=== PATIENT | female | born 1980 | race Hispanic/Latino ===

== ENCOUNTER → 2017-12-02 14:48 | Outpatient (CLI) | payer BC, SELFPAY ==
[2017-12-04 16:26] LABS: HPV Reflexed? NOT INDICATED
== END ==
PROVIDERS: Family Provider Family Medicine; PCP Family Medicine; Visit Provider Obstetrics & Gynecology
DX: Z12.4 Encounter for screening for malignant neoplasm of cervix (principal)
CPT/HCPCS: 88175; G0145

== ENCOUNTER → 2017-12-04 07:41 | Outpatient (CLI) | payer BC, SELFPAY ==
[2017-12-04 09:30] LABS: Hematocrit 40.2 % (37-47); Hemoglobin 13.3 g/dl (12.0-15.0); Mean Corp Hgb Conc 33.1 g/gl (32-36); Mean Corpuscular Hgb 29.6 pg (27.0-32.0); Mean Corpuscular Volume 89.5 fL (81-99); Platelet Count 156 K/mm3 (150-450); RBC Distribution Width CV 12.7 % (11.6-14.6); RBC Distribution Width SD 41.1 fl (35.1-43.9); Red Blood Count 4.49 M/mm3 (4.2-5.4); White Blood Count 3.9 K/mm3 (4.4-11.0)
[2017-12-04 09:37] LABS: Scan Indicated on CBC? Y/N NO
[2017-12-04 10:05] LABS: ALB/GLOB Ratio 1.1 RATIO (0.9-2.4); AST(SGOT) 16 U/L (15-37); Alanine Aminotransfer ALT/SGPT 26 U/L (13-56); Albumin, Serum 3.9 g/dL (3.2-5.0); Alkaline Phosphatase 38 U/L (45-117); Anion Gap 6 (5-15); BUN 12 mg/dL (7-18); BUN/Creat Ratio 18.3 RATIO (10-20); Calcium,Total 8.3 mg/dL (8.5-10.1); Chloride 108 mmol/L (98-107); Cholesterol 160 mg/dL (200); Creatinine, Serum 0.66 mg/dL (0.55-1.02); EST Glomerular Filtration Rate 108 mL/min (>60); Est Glom Filt Rate - Afr Amer 131 mL/min (>60); Globulin 3.4 g/dL (2.2-4.2); Glucose 85 mg/dL (74-106); High Density Lipoprotein 60 mg/dL; Potassium 3.7 mmol/L (3.5-5.1); Protein, Total 7.3 g/dL (6.4-8.2); Sodium Level 141 mmol/L (136-145); Thyroid Stim Hormone (TSH) 2.31 uIU/mL (0.358-3.74); Triglycerides 87 mg/dL; Very Low Density Lipoprotein 17 mg/dL (5-40)
== END ==
PROVIDERS: Visit Provider Obstetrics & Gynecology
DX: Z00.00 Encounter for general adult medical examination without abnormal findings (principal)
CPT/HCPCS: 36415; 80053; 80061; 84443; 85027

== ENCOUNTER → 2018-05-08 08:01 | Outpatient (CLI) | payer BC, SELFPAY ==
[2018-05-08 08:58] LABS: Absolute Lymphocyte Count 1.56 X10^3/ul (0.83-4.51); Absolute Neutrophil Count 3.1 X10^3/uL (2.0-7.7); Basophil# 0.01 X10^3/uL; Basophil% 0.2 % (0-1); Eosinophil# 0.04 X10^3/uL; Eosinophils% 0.8 % (0-5); Hemoglobin 13.2 g/dl (12.0-15.0); Lymphocyte # 1.56 X10^3/ul (4.0); Lymphocyte % 30.4 % (19-41); Mean Corpuscular Hgb 29.7 pg (27.0-32.0); Mean Corpuscular Volume 89.9 fL (81-99); Mean Platelet Vol. 9.8 fl (6.2-12.0); Monocyte# 0.42 X10^3/uL; Monocyte% 8.2 % (0-10); Neutrophil # 3.11 X10^3/uL (2.7-7.7); Neutrophil % 60.4 % (47-70); Platelet Count 183 K/mm3 (150-450); RBC Distribution Width CV 12.6 % (11.6-14.6); RBC Distribution Width SD 41.3 fl (35.1-43.9); Red Blood Count 4.45 M/mm3 (4.2-5.4); White Blood Count 5.1 K/mm3 (4.4-11.0)
[2018-05-08 08:59] LABS: POSITIVE COUNT NO; POSITIVE DIFFERENTIAL NO; POSITIVE MORPHOLOGY NO
[2018-05-08 09:11] LABS: ALB/GLOB Ratio 1.1 RATIO (0.9-2.4); AST(SGOT) 19 U/L (15-37); Alanine Aminotransfer ALT/SGPT 25 U/L (13-56); Albumin, Serum 3.9 g/dL (3.2-5.0); Alkaline Phosphatase 38 U/L (45-117); Anion Gap 8 (5-15); BUN 15 mg/dL (7-18); BUN/Creat Ratio 22.4 RATIO (10-20); Calcium,Total 8.2 mg/dL (8.5-10.1); Chloride 108 mmol/L (98-107); Cholesterol 178 mg/dL (200); Creatinine, Serum 0.67 mg/dL (0.55-1.02); EST Glomerular Filtration Rate 106 mL/min (>60); Est Glom Filt Rate - Afr Amer 128 mL/min (>60); Globulin 3.7 g/dL (2.2-4.2); Glucose 93 mg/dL (74-106); High Density Lipoprotein 76 mg/dL; Potassium 4.1 mmol/L (3.5-5.1); Protein, Total 7.6 g/dL (6.4-8.2); Sodium Level 141 mmol/L (136-145); Triglycerides 51 mg/dL; Very Low Density Lipoprotein 10 mg/dL (5-40)
--- OUTSIDE RECORDS SUMMARY | 2018-07-03 01:44 | XMS RPT_ITS ---
:1980 Author Organization OHIP Care Team Providers Name Role Phone Shelby Simmons Attending Unavailable Shelby Simmons Referring Unavailable Primay Care Physicia, No Primary Care Unavailable Shelby Simmons Attending Unavailable Angel Casanova Primary Care Unavailable Oleghe, Efewongbe Attending Unavailable Oleghe, Efewongbe Referring Unavailable Oleghe, Efewongbe Attending Unavailable Oleghe, Efewongbe Referring Unavailable Oleghe, Efewongbe Primary Care Unavailable PROBLEMS PROBLEMS DATE TYPE CONDITION / CODE ATTENDING STATUS SOURCE 12/02/2017 Unknown Z12.4 - Shelby Simmons Active [place] Encounter for Community screening for Hospital malignant Repository neoplasm of cervix / Z12.4(ICD-10) PROCEDURES PROCEDURES No Procedure Records FoundRESULTS RESULTS CBC W/DIFF, AUTOMATED Collected: 05/08/2018 Status: F Source: [place] [facility] TYPE CODE TESTS RESULT OUT OF RANGE REFERENCE UNITS LAB L100.1000 4.4-11.0 K/mm3 Normal WBC 5.1 LAB L100.1200 4.2-5.4 M/mm3 Normal RBC 4.45 LAB L100.1300 12.0-15.0 g/dl Normal HGB 13.2 LAB L100.1400 37-47 % Normal HCT 40.0 LAB L100.1500 81-99 fL Normal MCV 89.9 LAB L100.1600 27.0-32.0 pg Normal MCH 29.7 LAB L100.1700 32-36 g/gl Normal MCHC 33.0 LAB L100.1810 11.6-14.6 % Normal RDW CV 12.6 LAB L100.1820 35.1-43.9 fl Normal RDW SD 41.3 LAB L100.1900 150-450 K/mm3 Normal PLT 183 LAB L100.2000 6.2-12.0 fl Normal MPV 9.8 LAB L100.2100 47-70 % Normal NEUT% 60.4 LAB L100.2200 19-41 % Normal LY% 30.4 LAB L100.2300 0-10 % Normal MONO% 8.2 LAB L100.2400 0-5 % Normal EO% 0.8 LAB L100.2500 0-1 % Normal BASO% 0.2 LAB L100.2550 0.0-0.9 % Normal IM GRAN % 0.000 Result Comment: IG% - Immature Granulocytes (promyelocytes, myelocytes and metamyelocytes) > 1% indicates that a LEFT SHIFT is Present. LAB L100.2620 2.0-7.7 X10 3/uL Normal Absolute Neut 3.1 LAB L100.2720 0.83-4.51 X10 3/ul Normal Absolute Lymph 1.56 Performed By: #### L100.0100 #### [facility] [address] [place] [address]. [place], [place], [address] COMPREHENSIVE METABOLIC Collected: 05/08/2018 Status: F Source: [facility] 8:27 AM [facility] REPOSITORY TYPE CODE TESTS RESULT OUT OF RANGE REFERENCE UNITS LAB L501.0100 74-106 mg/dL Normal GLU 93 Result Comment: Please note revised GLUCOSE reference range effective 2017. LAB L501.1000 7-18 mg/dL Normal BUN 15 LAB L501.1100 0.55-1.02 mg/dL Normal CREAT,SERUM 0.67 Result Comment: The validity of the calculated GFR AND GFRAA in patients over 70 years has not been determined. Clinical correlation is essential. LAB L501.1110 >60 mL/min Normal EST GFR 106 Result Comment: Non- GFR Calc LAB L501.1115 >60 mL/min Normal EST GFR - AA 128 Result Comment: GFR Calc LAB L501.1300 10-20 RATIO High BUN/CRE 22.4 LAB L501.1500 6.4-8.2 g/dL T Normal PROT 7.6 LAB L501.1800 3.2-5.0 g/dL Normal ALB 3.9 LAB L501.1950 2.2-4.2 g/dL Normal GLOB 3.7 LAB L501.2000 0.9-2.4 RATIO Normal A/G 1.1 LAB L501.2200 8.5-10.1 mg/dL Low CA 8.2 LAB L501.4100 15-37 U/L Normal AST 19 LAB L501.4305 45-117 U/L Low ALK P 38 LAB L501.4405 13-56 U/L Normal ALT 25 LAB L501.4600 0.20-1.00 mg/dL T Normal BILI 0.80 LAB L501.5300 136-145 mmol/L NA Normal 141 LAB L501.5600 3.5-5.1 mmol/L K Normal 4.1 LAB L501.5900 98-107 mmol/L High CL 108 LAB L501.6100 21.0-32.0 mmol/L Normal CO2 25.0 LAB L501.6200 5-15 Normal GAP 8 Performed By: #### L500.4050, L500.4100 #### [facility] [place], [address] LIPID PROFILE Collected: 05/08/2018 Status: F Source: [place] 8:27 AM [facility] REPOSITORY TYPE CODE TESTS RESULT OUT OF RANGE REFERENCE UNITS LAB L501.4900 200 mg/dL Normal CHOL 178 Result Comment: <200 mg/dL Desirable 200-240 mg/dL Borderline >240 mg/dL High Risk LAB L501.5000 mg/dL Normal TRIG 51 Result Comment: The drugs N-Acetylcysteine and Metamizole may falsely depress this assay. Serum Triglycerides Reference Interval Normal <150 mg/dL Borderline high 150 - 199 mg/dL High 200 - 499 mg/dL Very High > or = 500 mg/dL LAB L501.6400 mg/dL Normal HDL 76 Result Comment: The drugs N-Acetylcysteine and Metamizole may falsely depress this assay. Reference Range HDL <40 mg/dL Low HDL Cholesterol HDL >or= 60 mg/dL High HDL Cholesterol LAB L501.6500 0-130 mg/dL Normal LDL 92 LAB L501.6600 5-40 mg/dL Normal VLDL 10 Performed By: #### L500.4050, L500.4100 #### [facility] [address] [place], [address] PROGRESS Observed: 02/03/2018 Status: COMPLETED Source: [place] 2:50 PM [facility] REPOSITORY HNO ID: [id number] Author: Austin Gupta) Chong Service: (none) Author Type: Physician Abrasive Grader Type: Progress Notes Filed: 02/03/2018 2:53 PM Note Text: Subjective HPI Pt presents with left sinus congestion and facial pain for a week. She feels it is worsening. She has tried tylenol otc which did not help. She is prone to sinus infections. partially translates as patient Divehi is broken and she primarily speaks Burmese. No fever or chills. No nv. No cough. Review of Systems Constitutional: Negative for fever. HENT: Positive for congestion, sinus pain and sore throat. Eyes: Negative. Respiratory: Negative. Negative for cough. Cardiovascular: Negative. Gastrointestinal: Negative. Genitourinary: Negative. Musculoskeletal: Negative. Skin: Negative. Negative for rash. All other systems reviewed and are negative. PAST MEDICAL HISTORY Diagnosis Date - NEGATIVE MEDICAL HISTORY Current Outpatient Prescriptions: Multivitamin capsule Take 1 capsule by mouth once daily. Disp: Rfl: acetaminophen (TYLENOL) 325 mg tablet Take 650 mg by mouth every 6 hours as needed. Disp: Rfl: doxycycline (VIBRA-TABS) 100 mg tablet Take 1 tablet by mouth twice daily for 10 days. Disp: 20 tablet Rfl: 0 fluticasone (FLONASE ALLERGY RELIEF) 50 mcg/actuation nasal spray Use 1 [place] in each nostril once daily for 7 days. Disp: 1 Bottle Rfl: 0 cetirizine (ZYRTEC) 10 mg tablet Take 1 tablet by mouth once daily for 14 days. Disp: 14 tablet Rfl: 0 Norethindrone, Contraceptive, 0.35 mg tablet Disp: Rfl: No current facility-administered medications for this visit. PAST SURGICAL HISTORY Procedure Laterality Date - SNGL - PAST SURGICAL HISTORY OF Knee surgery No family history on file. Social History Substance Use Topics - Smoking status: Never Smoker - Smokeless tobacco: Never Used - Alcohol use No BP 102/60 Pulse 70 Temp 36.3 ?C (97.3 ?F) (Tympanic) Resp 16 Wt 46.3 kg (102 lb) LMP 02/02/2018 BMI 18.36 kg/m? Objective Physical Exam Constitutional: She is oriented to person, place, and time and well-developed, well-nourished, and in no distress. HENT: Head: Normocephalic and atraumatic. Right Ear: Tympanic membrane, external ear and ear canal normal. Left Ear: Tympanic membrane, external ear and ear canal normal. Nose: Mucosal edema and rhinorrhea present. Left sinus exhibits maxillary sinus tenderness. Mouth/Throat: Uvula is midline, oropharynx is clear and moist and mucous membranes are normal. Cardiovascular: Normal rate, regular rhythm and normal heart sounds. Pulmonary/Chest: Effort normal and breath sounds normal. Neurological: She is alert and oriented to person, place, and time. Skin: Skin is warm and dry. No rash noted. Psychiatric: Affect and judgment normal. Nursing note and vitals reviewed. ASSESSMENT/PLAN: 1. Acute non-recurrent maxillary sinusitis - ICD9: 461.0, ICD10: J01.00 - Will begin treatment with Doxycline - The patient should also be given Flonase and zyrtec for the first 5-7 days of treatment. - Supportive care with plenty of fluids, rest, and analgesia prn. - Follow up in one week if symptoms persist or worsen. - DOXYCYCLINE HYCLATE 100 MG TABLET - FLUTICASONE 50 MCG/ACTUATION NASAL SPRAY,SUSPENSION - CETIRIZINE 10 MG TABLET SAM Bailey Observed: 02/03/2018 Status: COMPLETED Source: [place] 12:15 PM [facility] REPOSITORY Office Visit ([facility]STR) JONESMÓNICA MONROY ([id number]) 1980 F Date Time Provider Department 02/03/18 12:15 PM AUSTIN GARZA) [facility] During your visit today, we recorded the following information about you: Temperature Pulse Respiration Blood pressure 97.3 degrees 70/minute 16/minute 102/60 Weight Last Period 46.3 kg 02/02/18 Austin Garza PA-C 02/03/2018 2:53 PM Signed Subjective HPI Pt presents with left sinus congestion and facial pain for a week. She feels it is worsening. She has tried tylenol otc which did not help. She is prone to sinus infections. partially translates as patient Divehi is broken and she primarily speaks Burmese. No fever or chills. No nv. No cough. Review of Systems Constitutional: Negative for fever. HENT: Positive for congestion, sinus pain and sore throat. Eyes: Negative. Respiratory: Negative. Negative for cough. Cardiovascular: Negative. Gastrointestinal: Negative. Genitourinary: Negative. Musculoskeletal: Negative. Skin: Negative. Negative for rash. All other systems reviewed and are negative. PAST MEDICAL HISTORY Diagnosis Date - NEGATIVE MEDICAL HISTORY Current Outpatient Prescriptions: Multivitamin capsule Take 1 capsule by mouth once daily. Disp: Rfl: acetaminophen (TYLENOL) 325 mg tablet Take 650 mg by mouth every 6 hours as needed. Disp: Rfl: doxycycline (VIBRA-TABS) 100 mg tablet Take 1 tablet by mouth twice daily for 10 days. Disp: 20 tablet Rfl: 0 fluticasone (FLONASE ALLERGY RELIEF) 50 mcg/actuation nasal spray Use 1 [place] in each nostril once daily for 7 days. Disp: 1 Bottle Rfl: 0 cetirizine (ZYRTEC) 10 mg tablet Take 1 tablet by mouth once daily for 14 days. Disp: 14 tablet Rfl: 0 Norethindrone, Contraceptive, 0.35 mg tablet Disp: Rfl: No current facility-administered medications for this visit. PAST SURGICAL HISTORY Procedure Laterality Date - SNGL - PAST SURGICAL HISTORY OF Knee surgery No family history on file. Social History Substance Use Topics - Smoking status: Never Smoker - Smokeless tobacco: Never Used - Alcohol use No BP 102/60 Pulse 70 Temp 36.3 ?C (97.3 ?F) (Tympanic) Resp 16 Wt 46.3 kg (102 lb) LMP 02/02/2018 BMI 18.36 kg/m? Objective Physical Exam Constitutional: She is oriented to person, place, and time and well-developed, well-nourished, and in no distress. HENT: Head: Normocephalic and atraumatic. Right Ear: Tympanic membrane, external ear and ear canal normal. Left Ear: Tympanic membrane, external ear and ear canal normal. Nose: Mucosal edema and rhinorrhea present. Left sinus exhibits maxillary sinus tenderness. Mouth/Throat: Uvula is midline, oropharynx is clear and moist and mucous membranes are normal. Cardiovascular: Normal rate, regular rhythm and normal heart sounds. Pulmonary/Chest: Effort normal and breath sounds normal. Neurological: She is alert and oriented to person, place, and time. Skin: Skin is warm and dry. No rash noted. Psychiatric: Affect and judgment normal. Nursing note and vitals reviewed. ASSESSMENT/PLAN: 1. Acute non-recurrent maxillary sinusitis - ICD9: 461.0, ICD10: J01.00 - Will begin treatment with Doxycline - The patient should also be given Flonase and zyrtec for the first 5-7 days of treatment. - Supportive care with plenty of fluids, rest, and analgesia prn. - Follow up in one week if symptoms persist or worsen. - DOXYCYCLINE HYCLATE 100 MG TABLET - FLUTICASONE 50 MCG/ACTUATION NASAL SPRAY,SUSPENSION - CETIRIZINE 10 MG TABLET Austin Garza PA-C Referring Provider: SELF [200] Allergies As of Date: 02/03/2018 Noted Allergy Reaction AUGMENTIN (AMOXICILLIN-POT CLAVUL*01/25/2015 16 - Unknown Date Reviewed: 02/03/2018 Reviewed by: Noelle Ribera Ma - Fully Assessed Reason for Visit: Sinus Problem [99] Cmt: sinus pressure and drainage x 1 week Primary Visit Diagnosis:Acute non-recurrent maxillary sinusitis [J01.00] Order(s):doxycycline (VIBRA-TABS) 100 mg tabletTake 1 tablet by mouth twice daily for 10 days.Disp: 20 tabletRfl: 0 fluticasone (FLONASE ALLERGY RELIEF) 50 mcg/actuation nasal sprayUse 1 [place] in each nostril once daily for 7 days.Disp: 1 BottleRfl: 0 cetirizine (ZYRTEC) 10 mg tabletTake 1 tablet by mouth once daily for 14 days.Disp: 14 tabletRfl: 0 Prescriptions as of 02/03/2018 Sig: MULTIVITAMIN CAPSULE Take 1 capsule by mouth once * ACETAMINOPHEN 325 MG TABLET Take 650 mg by mouth every 6 * DOXYCYCLINE HYCLATE 100 MG TA* Take 1 tablet by mouth twice * FLUTICASONE 50 MCG/ACTUATION * Use 1 [place] in each nostril o* CETIRIZINE 10 MG TABLET Take 1 tablet by mouth once d* NORETHINDRONE (CONTRACEPTIVE)* Problem List As Of Date: 02/03/2018 (None) Prescriptions ordered this encounter Disp Refills Start End DOXYCYCLINE HYCLATE 100 MG TABLET 20 t* 0 02/03/2018 02/13/2018 Route: ORAL Sig: Take 1 tablet by mouth twice daily for 10 days. FLUTICASONE 50 MCG/ACTUATION NASAL S* 1 Al* 0 02/03/2018 02/10/2018 Route: EACH NOSTRIL Sig: Use 1 [place] in each nostril once daily for 7 days. CETIRIZINE 10 MG TABLET 14 t* 0 02/03/2018 02/17/2018 Route: ORAL Sig: Take 1 tablet by mouth once daily for 14 days. Encounter Status:Closed by AUSTIN GARZA PA-C on 02/03/18 CBC-COMPLETE BLOOD CNT Collected: 12/04/2017 Status: F Source: [place] NO DIFF 7:46 AM [facility] REPOSITORY TYPE CODE TESTS RESULT OUT OF RANGE REFERENCE UNITS LAB L100.1000 4.4-11.0 K/mm3 Low WBC 3.9 LAB L100.1200 4.2-5.4 M/mm3 Normal RBC 4.49 LAB L100.1300 12.0-15.0 g/dl Normal HGB 13.3 LAB L100.1400 37-47 % Normal HCT 40.2 LAB L100.1500 81-99 fL Normal MCV 89.5 LAB L100.1600 27.0-32.0 pg Normal MCH 29.6 LAB L100.1700 32-36 g/gl Normal MCHC 33.1 LAB L100.1810 11.6-14.6 % Normal RDW CV 12.7 LAB L100.1820 35.1-43.9 fl Normal RDW SD 41.1 LAB L100.1900 150-450 K/mm3 Normal PLT 156 LAB L100.2000 6.2-12.0 fl Normal MPV 10.0 Performed By: #### L100.0500 #### [facility] [address] [place], [address] COMPREHENSIVE METABOLIC Collected: 12/04/2017 Status: F Source: [place] LAMB 7:46 AM [facility] REPOSITORY TYPE CODE TESTS RESULT OUT OF RANGE REFERENCE UNITS LAB L501.0100 74-106 mg/dL Normal GLU 85 Result Comment: Please note revised GLUCOSE reference range effective 2017. LAB L501.1000 7-18 mg/dL Normal BUN 12 LAB L501.1100 0.55-1.02 mg/dL Normal CREAT,SERUM 0.66 Result Comment: The validity of the calculated GFR AND GFRAA in patients over 70 years has not been determined. Clinical correlation is essential. LAB L501.1110 >60 mL/min Normal EST GFR 108 Result Comment: Non- GFR Calc LAB L501.1115 >60 mL/min Normal EST GFR - AA 131 Result Comment: GFR Calc LAB L501.1300 10-20 RATIO Normal BUN/CRE 18.3 LAB L501.1500 6.4-8.2 g/dL T Normal PROT 7.3 LAB L501.1800 3.2-5.0 g/dL Normal ALB 3.9 LAB L501.1950 2.2-4.2 g/dL Normal GLOB 3.4 LAB L501.2000 0.9-2.4 RATIO Normal A/G 1.1 LAB L501.2200 8.5-10.1 mg/dL Low CA 8.3 LAB L501.4100 15-37 U/L Normal AST 16 LAB L501.4305 45-117 U/L Low ALK P 38 LAB L501.4405 13-56 U/L Normal ALT 26 LAB L501.4600 0.20-1.00 mg/dL High T BILI 1.30 LAB L501.5300 136-145 mmol/L NA Normal 141 LAB L501.5600 3.5-5.1 mmol/L K Normal 3.7 LAB L501.5900 98-107 mmol/L High CL 108 LAB L501.6100 21.0-32.0 mmol/L Normal CO2 27.0 LAB L501.6200 5-15 Normal GAP 6 Performed By: #### L500.4050, L500.4100, L501.9520 #### [facility] [address] [place], [address] LIPID PROFILE Collected: 12/04/2017 Status: F Source: [place] 7:46 AM [facility] REPOSITORY TYPE CODE TESTS RESULT OUT OF RANGE REFERENCE UNITS LAB L501.4900 200 mg/dL Normal CHOL 160 Result Comment: <200 mg/dL Desirable 200-240 mg/dL Borderline >240 mg/dL High Risk LAB L501.5000 mg/dL Normal TRIG 87 Result Comment: The drugs N-Acetylcysteine and Metamizole may falsely depress this assay. Serum Triglycerides Reference Interval Normal <150 mg/dL Borderline high 150 - 199 mg/dL High 200 - 499 mg/dL Very High > or = 500 mg/dL LAB L501.6400 mg/dL Normal HDL 60 Result Comment: The drugs N-Acetylcysteine and Metamizole may falsely depress this assay. Reference Range HDL <40 mg/dL Low HDL Cholesterol HDL >or= 60 mg/dL High HDL Cholesterol LAB L501.6500 0-130 mg/dL Normal LDL 83 LAB L501.6600 5-40 mg/dL Normal VLDL 17 Performed By: #### L500.4050, L500.4100, L501.9520 #### [facility] [address] [place], [address] THYROID STIM HORMONE Collected: 12/04/2017 Status: F Source: [place] (TSH) 7:46 AM [facility] REPOSITORY TYPE CODE TESTS RESULT OUT OF RANGE REFERENCE UNITS LAB L501.9520 0.358-3.74 uIU/mL Normal TSH 2.31 Performed By: #### L500.4050, L500.4100, L501.9520 #### [facility] [address] [place], [address] PAP I-G W/RFX HRHPV Collected: 12/02/2017 Status: F Source: [place] 11:15 AM [facility] REPOSITORY Order Comment: CYTOLOGY INFORMATION: - CLINICAL INFORMATION: LACTATING - DATE LMP/MENOPAUSE: LMP NOT GIVEN - COLLECTION VIAL: Thin Prep Vial - LAST TURNER SOURCE: CERVICAL/ENDOCERVICAL - COLLECTION TECHNIQUE: BRUSH/SPATULA Specimen Comment: [id number] Specimen Comment: No. of containers..01 ThinPrep Vial TYPE CODE TESTS RESULT OUT OF RANGE REFERENCE UNITS LAB L7400.0800 . Normal DIAGN Comment Result Comment: NEGATIVE FOR INTRAEPITHELIAL LESION AND MALIGNANCY. LAB L7400.0900 . Normal ADEQ Comment Result Comment: Satisfactory for evaluation. Endocervical and/or squamous metaplastic cells (endocervical component) are present. LAB L7400.1400 . Normal PERFORM Comment Result Comment: Tania Buitrago, Gas Analyst (ASCP) LAB L7400.2575 . Normal TEST METHOD Comment Result Comment: This liquid based ThinPrep(R) pap test was screened with the use of an image guided system. LAB L7400.2600 . Normal . COMM LAB L7400.2700 . Normal PAPSMR Comment Result Comment: The Pap smear is a screening test designed to aid in the detection of premalignant and malignant conditions of the uterine cervix. It is not a diagnostic procedure and should not be used as the sole means of detecting cervical cancer. Both false-positive and false-negative reports do occur. LAB L7400.2800 . Normal HPV RFLX Comment Result Comment: The HPV DNA reflex criteria were not met with this specimen result therefore, no HPV testing was performed. Performed at: [facility] [address] [id number] Inspection Clerk: Leticia Smith MD, Phone: [phone] Performed By: #### L7400.0350 #### [facility] (refer to report for specific site) refer to report for address and phone number ALLERGIES ALLERGIES DATE TYPE / CODE NAME / CODE REACTION SEVERITY SOURCE 10/31/2016 Drug amoxicillin/M27746 Nausea Unknown [place] Allergy/416 3675(RXNORM) [facility] 459632([facility] [place]) Repository 01/25/2015 DRUG/087384 AMOXICILLIN-POT UNKNOWN [facility] 003(SNOMED CLAVULANATE [facility] CT) Repository ENCOUNTERS ENCOUNTERS ADMIT/DISCHARGE ACCOUNT ADMITTING ENCOUNTER LOCATION SOURCE NUMBER CLASS 05/08/2018 [id number] Ambulatory [facility] ing:LAB Repository 04/24/2018/04/24/20 [id number] Ambulatory BMSBuilding:B [place] [address] Repository 02/03/2018/02/05/20 [id number] Ambulatory [facility] [address] [place] [address] Repository 12/04/2017 [id number] Ambulatory [facility] ing:LAB.FUTUR Repository E 12/02/2017 [id number] Ambulatory [facility] ing:LABSPEC Repository PAYERS PAYERS ENCOUNTER GUARANTOR PAYER SUBSCRIBER SOURCE 05/08/2018 Martha Primary Martha [place] [id number] Insurance:ANTHEMPolic CamargoDOB: Community [place]: [id number] [id number] Repository [address]99[address]Bcd: [address] Date:[id number] [phone] () [address] [place] [address]BN: 05/08/2018 Secondary NOT GIVENUNK [place] Insurance:SELF PAY [facility] Number: Effective Repository Date:2018-05-08 04/24/2018 MÓNICA N Primary Martha [place] [id number] Insurance:ANTHEMPolic CamargoD[facility] y Number: [id number] [address]Ogg: [id number] Repository vinh Date:2069-44-70HV ) [address] [place] [address]PA: 04/24/2018 Secondary NOT GIVENUNK [place] Insurance:SELF PAY [facility] Number: Effective Repository Date:2018-04-20 12/04/2017 Martha Primary Martha [place] [id number] Insurance:ANTHEMPolic CamargoDOB: Community [place] y Number: [id number], [place] [id number] Repository [address]Jxe: [address] Date:[id number] [phone] () [address], [place] [address]UP: 12/04/2017 Secondary NOT GIVENUNK [place] Insurance:SELF PAY [facility] Number: Effective Repository Date:2017-12-02 12/02/2017 Martha Primary Martha [place] [id number] Insurance:ANTHEMPolic CamargoDOB: Community [place] y Number: [id number], [place] [id number] Repository [address]Ktn: (495) vinh Date:[id number] [phone] () [address], [place] [address]CO: 12/02/2017 Secondary NOT GIVENUNK [place] Insurance:SELF PAY [facility] Number: Effective Repository Date:2017-12-02
== END ==
PROVIDERS: Family Provider Internal Medicine; PCP Internal Medicine; Referring Provider Internal Medicine; Visit Provider Internal Medicine
DX: Z00.00 Encounter for general adult medical examination without abnormal findings (principal)
CPT/HCPCS: 36415; 80053; 80061; 85025

== ENCOUNTER → 2018-12-03 11:28 | Outpatient (CLI) | payer BC, SELFPAY ==
[2018-12-03 13:50] LABS: Hematocrit 39.2 % (37-47); Hemoglobin 13.2 g/dl (12.0-15.0); Mean Corp Hgb Conc 33.7 g/gl (32-36); Mean Corpuscular Hgb 29.9 pg (27.0-32.0); Mean Corpuscular Volume 88.9 fL (81-99); Mean Platelet Vol. 10.3 fl (6.2-12.0); Platelet Count 183 K/mm3 (150-450); RBC Distribution Width SD 42.2 fl (35.1-43.9); Red Blood Count 4.41 M/mm3 (4.2-5.4); White Blood Count 5.4 K/mm3 (4.4-11.0)
[2018-12-03 13:51] LABS: Scan Indicated on CBC? Y/N NO
[2018-12-03 13:56] LABS: Glucose 88 mg/dL (74-106)
[2018-12-08 16:56] LABS: HPV Reflexed? NOT INDICATED
== END ==
PROVIDERS: PCP Internal Medicine; Visit Provider Obstetrics & Gynecology
DX: Z13.89 Encounter for screening for other disorder (principal); Z83.2 Family history of diseases of the blood and blood-forming organs and certain disorders involving the immune mechanism; Z12.4 Encounter for screening for malignant neoplasm of cervix
CPT/HCPCS: 36415; 82947; 85027; 88175; G0145

== ENCOUNTER 2019-02-15 21:12 | Emergency (ER) | payer BC, SELFPAY ==
[2019-02-15 21:13] VITALS: BP 112/97; PULSE 71; RESP 16; TEMP 36.4; O2SAT 100; BMI 18.3
--- NOTE | 2019-02-15 21:48 | ED.VISSUMM ---
- ER Visit Summary Date of Service: 02/15/19 Chief Complaint: Headache History of Present Illness: The patient is a [address] Swanson. She reports that [place] approximately 3-1/2 hours when she has a headache behind her eyes that began. Is gradually increased. Is 9 to 10 hours and 2 out of 10 currently. It is a dull pain that is worsened by light. Is been relieved by the IV fluids she is received. She does complain of photophobia with this. She has had nausea without vomiting. No recent injury to her head. No fever or chills. Patient and her reports that she has had this multiple times in the past when she has been dehydrated or overheated. Physical Examination: Vitals: Stable. Afebrile. General: Well-nourished and well-developed. Head: Normocephalic atraumatic. Neck: Supple, no lymphadenopathy. No JVD. Nontender. Cardiovascular: Regular rate and rhythm. No murmurs. Respiratory: No respiratory distress. Clear to auscultation bilaterally. Abdominal: Soft, nontender, nondistended, normal bowel sounds. No guarding, rebound, or peritoneal signs. Back: Nontender. Extremities: Nontender, no edema. Skin: Normal color, no rash. Neurologic: Alert and oriented ?3. Cranial nerves II through XII are intact. Normal strength and sensation. Psych: Normal affect. Emergency Department Course and Treatment: Patient was given a liter of normal saline. She feels much improved. She refused any pain or nausea medications. Treatment Plan: Patient be discharged instructions to follow-up with her primary care physician in 1 to 2 days if not improving. Return to the emergency department for any worsening symptoms. Disposition: To home in improved and stable condition. Impression: 1. Cephalgia. This note was generated with [employer] dictation software. It may contain incorrect words, spelling, and punctuation that were not noted in review of the chart prior to signing ED Disposition - Plan for ED Patient: Disposition: Home or Assisted Living Instructions: HEADACHE, Unspecified Referrals: Shirin Swanson MD [Primary Care Provider] - 1-2 Days if not improving
[2019-02-15 21:59] VITALS: BP 103/77; PULSE 64; RESP 15; O2SAT 99
== END 2019-02-15 22:00 | disposition home or self-care (01) ==
LOC: ED 21:25
PROVIDERS: Emergency Provider Emergency Medicine; Family Provider Internal Medicine; PCP Internal Medicine
DX: R51 Headache (principal)
CPT/HCPCS: 99284; J7030

== ENCOUNTER → 2019-05-10 08:11 | Outpatient (CLI) | payer BC, SELFPAY ==
[2019-04-28 11:03] VITALS: BMI 18.3
[2019-05-10 12:21] LABS: ALB/GLOB Ratio 1.1 RATIO (0.9-2.4); AST(SGOT) 19 U/L (15-37); Alanine Aminotransfer ALT/SGPT 24 U/L (13-56); Albumin, Serum 3.8 g/dL (3.2-5.0); Alkaline Phosphatase 38 U/L (45-117); Anion Gap 6 (5-15); BUN 14 mg/dL (7-18); BUN/Creat Ratio 17.9 RATIO (10-20); Calcium,Total 8.5 mg/dL (8.5-10.1); Chloride 108 mmol/L (98-107); Creatinine, Serum 0.78 mg/dL (0.55-1.02); EST Glomerular Filtration Rate 88 mL/min (>60); Est Glom Filt Rate - Afr Amer 106 mL/min (>60); Globulin 3.6 g/dL (2.2-4.2); Glucose 90 mg/dL (74-106); Potassium 3.8 mmol/L (3.5-5.1); Protein, Total 7.4 g/dL (6.4-8.2); Sodium Level 139 mmol/L (136-145)
[2019-05-10 12:39] LABS: Absolute Lymphocyte Count 1.83 X10^3/uL (0.83-4.51); Absolute Neutrophil Count 2.1 X10^3/uL (2.0-7.7); Basophil# 0.03 X10^3/uL; Basophil% 0.7 % (0-1); Eosinophil# 0.08 X10^3/uL; Eosinophils% 1.8 % (0-5); Hematocrit 40.2 % (37-47); Lymphocyte # 1.83 X10^3/ul (4.0); Lymphocyte % 40.7 % (19-41); Mean Corp Hgb Conc 32.3 g/dL (32-36); Mean Corpuscular Hgb 29.4 pg (27.0-32.0); Mean Platelet Vol. 10.2 fl (6.2-12.0); Monocyte# 0.47 X10^3/uL; Monocyte% 10.4 % (0-10); NRBC Flagged by Analyzer 0 % (0-5); Neutrophil # 2.08 X10^3/uL (2.7-7.7); Neutrophil % 46.2 % (47-70); Platelet Count 182 K/mm3 (150-450); RBC Distribution Width CV 12.6 % (11.6-14.6); RBC Distribution Width SD 41.5 fl (35.1-43.9); Red Blood Count 4.42 M/mm3 (4.2-5.4); White Blood Count 4.5 K/mm3 (4.4-11.0)
== END ==
PROVIDERS: Family Provider Internal Medicine; PCP Internal Medicine; Visit Provider Internal Medicine
DX: Z00.00 Encounter for general adult medical examination without abnormal findings (principal)
CPT/HCPCS: 36415; 80053; 85025